=== PATIENT | female | born 1965 | race Two or more races ===

== ENCOUNTER 2017-08-14 21:55 | Emergency (ER) | payer OTHER ==
[~2017-08-14] VITALS: Ht 172.7 cm; Wt 75.0 kg
[2017-08-14] MEDS ORDERED: UNKNOWN BP MED (23:04)
[2017-08-15] LABS: HEMATOCRIT 37.4 % (34.6-47.8); HEMOGLOBIN 12.5 g/dL (11.7-16.4); WHITE BLOOD COUNT 6.9 x10^3/uL (3.4-10)
[2017-08-15 00:05] LABS: BLOOD UREA NITROGEN 18 mg/dL (7-18)
[2017-08-15 00:08] LABS: ASPARTATE AMINO TRANSFERASE 13 U/L (15-37)
[2017-08-15] MEDS ORDERED: IBUPROFEN 200 MG TABLET PO ONE (00:30)
[2017-08-15] MEDS ORDERED: PLEASE ENTER ALLERGIES MC SCH ×2 (00:30)
[2017-08-15] MEDS ORDERED: IBUPROFEN 200 MG TABLET ONE (00:38)
[2017-08-15 02:03] VITALS: BP 131/74
== END 2017-08-15 02:26 | disposition home or self-care (01) ==
LOC: ED 08-15 02:20
DX: R10.13 Epigastric pain (principal); M54.2 Cervicalgia; I10 Essential (primary) hypertension
CPT/HCPCS: 36415; 72050; 76700; 80053; 81003; 83690; 85025; 93005; 99285